=== PATIENT | female | born 1955 | race Caucasian/White ===

== ENCOUNTER → 2016-11-30 | Outpatient (CLI) | payer BC ==
[~2016-11-30] MED LIST: ADDERALL PO; ALEVE PO; ALPRAZOLAM PO; ALPRAZOLAM1 MG PO; AMITRYPTYLINE; ASPIRIN PO; ASPIRIN81 M1 PO; AZITHROMYCIN250 MG PO; BACLOFEN10 MG PO; BENZONATATE PO; COLON CLEAR; CYANOCOBAL1000 MCG/M INJ; CYMBALTA PO; DICYCLOMINE HCL20 MG PO; HYDROCODON-ACE1 EAC5 PO; HYDROCODONE-APA1 T33 PO; IBUPROFEN800 MG PO; INTUNIV4 MG PO; LISINOPRIL PO; LISINOPRIL-HCTZ1 T14 PO; LORTAB 7.5-5001 TAB; LORTAB 7.5-5001 TAB PO; MILK THISTLE; MILK THISTLE PO; MULTI-VITAMIN1 TAB PO; NEURONTIN PO; NEXIUM PO; NORCO 10/325 TA1 TAB PO; OMEGA 3 FATTY ACID; OXYCODONE HCL10 MG; PHENERGAN PO; PHENERGAN25 M1 PO; PHYSICIAN; PROBIOTICS; PROZAC PO; PROZAC40 MG DOB; PROZAC40 MG PO; ROBITUSSIN A-C S5 ML PO; TOPROL XL; TORADOL INJ; VIT B COMPLEX; VIT E; VITAMIN C PO; VYVANSE70 MG PO; WELLBUTRIN XL PO; XANAX PO; XANAX XR2 MG PO; ZOFRAN ODT4 MG PO; ZOFRAN PO; ZOFRANODT PO; [UNRECOGNIZED DRUG - OTHER]; [UNRECOGNIZED DRUG - OTHER]
--- NOTE | ~2016-11-30 | CT137 ---
[facility] A Service [facility] RADIOLOGY TEXT RESULTS PATIENT: CHRISTIAN JOHNSON LOCATION: [facility] : 59 UNIT #: [id number] AGE: [address]: Wendi Nelson MD SEX: F ORDER DR: [id number] [address] [address] [id number] O MR#: [id number] Acc #: [id number] NAME: CHRISTIAN JOHNSON : 1955 SEX: F STUDY DATE/TIME: 11/30/2016 15:11 UNIT: [facility] ROOM: STUDY DESCRIPTION: CT Lung Screening annual Attending Physician: Wendi Nelson M.D. Referring Physician: Wendi Nelson M.D. Ordering Physician: Wendi Nelson M.D. Primary Care Physician: Wendi Nelson M.D. MEDICAL IMAGING REPORT This report is preliminary unless electronic signature is present EXAM CT lung cancer screening. INDICATIONS Lung cancer screening. [id number] smoking history. PROCEDURE Unenhanced low-dose CT of the chest performed per lung cancer screening protocol. CTDI 3 mGy. Total DLP 100 mGy-cm. This CT exam was performed with one or more of the following radiation dose reduction techniques: Automatic exposure control, adjustment of mA and/or kV according to patient size, and iterative reconstruction. COMPARISON 12/05/2014 FINDINGS No suspicious pulmonary nodule. Linear areas of opacity in both lungs are similar to the prior and most in keeping with scarring. No adenopathy. No acute findings in the included upper abdomen. No aggressive appearing bone lesion. IMPRESSION 1. No suspicious pulmonary nodule. 2. Lung-RADS category 1, negative. Per the ACR Lung-RADS recommendations, suggest patient continue with annual low-dose lung cancer screening. Dictated by... Diego Venegas M.D. [facility] A Service [facility] RADIOLOGY TEXT RESULTS PATIENT: CHRISTIAN JOHNSON LOCATION: [facility] : 59 UNIT #: [id number] AGE: [address]: Wendi Nelson MD SEX: F ORDER DR: THIS IS AN ELECTRONICALLY VERIFIED REPORT Diego Venegas M.D. at 12/01/2016 7:06 AM JENNIFER/dwight TD: 11/30/2016 21:15 JOB #: [id number] MEDICAL IMAGING REPORT Page 1 of 1 COPY
== END | disposition home or self-care (01) ==
LOC: CCAT 14:40
DX: Z87.891 Personal history of nicotine dependence (principal)
CPT/HCPCS: G0297